=== PATIENT | female | born 1980 | race Two or more races ===

== ENCOUNTER 2023-09-10 21:35 | Emergency (ER) | payer OTHER ==
[~2023-09-10] VITALS: Ht 157.5 cm; Wt 99.8 kg
[2023-09-10] MEDS ORDERED: GLUMETZA1000 MG PO (21:58)
[2023-09-10] MEDS ORDERED: CRESTOR5 MG PO (21:59)
[2023-09-10] MEDS ORDERED: LOSARTAN POTASS25 MG PO (21:59)
[2023-09-10] MEDS ORDERED: AMLODIPINE-OLM1 EAC2 (21:59)
[2023-09-10] MEDS ORDERED: MOUNJARO7.5 MG/0.5 SQ (22:00)
[2023-09-10] MEDS ORDERED: GEMFIBROZIL600 MG PO (22:01)
[2023-09-10] MEDS ORDERED: CEFTRIAXONE SODIUM 1,000 MG VIAL IM STA (23:11)
[2023-09-10] MEDS ORDERED: HYDROCODONE/CHLORPHEN P-STIREX 5 ML ML PO STA (23:12)
[2023-09-10] MEDS ORDERED: DEXAMETHASONE SODIUM PHOSPHATE 4 MG/ML VIAL IM STA (23:12)
== END 2023-09-10 23:38 | disposition home or self-care (01) ==
LOC: ER 21:36
DX: J06.9 Acute upper respiratory infection, unspecified (principal)

== ENCOUNTER 2023-10-15 15:21 | Emergency (ER) | payer OTHER ==
[~2023-10-15] VITALS: Ht 157.5 cm; Wt 98.0 kg
[~2023-10-15 15:21] MED LIST: AMLODIPINE-OLM1 EAC2; CRESTOR5 MG PO; GEMFIBROZIL600 MG PO; GLUMETZA1000 MG PO; LOSARTAN POTASS25 MG PO; MOUNJARO7.5 MG/0.5 SQ
[2023-10-15] MEDS ORDERED: ACID REDUCER20 M1 (15:31)
[2023-10-15] MEDS ORDERED: ORPHENADRINE CITRATE 30 MG/ML AMPUL IM STA (16:13)
[2023-10-15] MEDS ORDERED: KETOROLAC TROMETHAMINE 60 MG VIAL IM STA (16:13)
[2023-10-15] MEDS ORDERED: ACETAMINOPHEN WITH CODEINE 1 UDTAB TABLET PO STA (16:14)
[2023-10-15] MEDS ORDERED: KETOROLAC TROMETHAMINE 60 MG VIAL IM ONE (16:18)
== END 2023-10-15 16:25 | disposition home or self-care (01) ==
LOC: ER 15:22
DX: M54.50 Low back pain, unspecified (principal)

== ENCOUNTER 2023-10-20 20:36 | Emergency (ER) | payer OTHER ==
[~2023-10-20] VITALS: Ht 157.5 cm; Wt 98.0 kg
[~2023-10-20 20:36] MED LIST changes: +ACID REDUCER20 M1
[2023-10-20] MEDS ORDERED: MORPHINE SULFATE 2 MG/ML CARTRIDGE IV ONE (22:45)
[2023-10-20] MEDS ORDERED: MEPERIDINE HCL/PF 25 MG/ML VIAL IM ONE (22:45)
[2023-10-20 22:58] LABS: HEMATOCRIT 37.4 % (36.0-45.00); HEMOGLOBIN 12.5 g/dL (12.0-15.00); MEAN CELL VOLUME 76.8 fL (80.00-100.00); MEAN CORPUSCULAR HEMOGLOBIN 25.7 pg (27.00-32.0); MEAN CORPUSCULAR HGB CONC 33.4 g/dl (32.0-36.0); PLATELET COUNT 345 K/uL (150-450); RED BLOOD COUNT 4.87 M/uL (4.00-6.00); RED CELL DISTRIBUTION WIDTH 14.2 % (11.5-14.5)
[2023-10-20 23:21] LABS: ALBUMIN 3.9 gm/dL (3.4-5.0); BILIRUBIN TOTAL 0.2 mg/dL (0.3-1.2); CALCIUM 9.7 mg/dL (8.5-10.1); CREATININE SERUM 1.07 mg/dL (0.55-1.02); GFR 56.51; GLOBULINA 3.8 G/DL (2.4-3.5); POTASSIUM 3.9 mEq/L (3.5-5.1); TOTAL PROTEIN 7.7 gm/dL (6.4-8.2)
[2023-10-20 23:49] LABS: PH,URINE 5.5 (5.0-8.0); URINE APPEARANCE Clear; URINE BILIRRUBIN Negative (NEGATIVE); URINE BLOOD Negative; URINE COLOR Yellow; URINE GLUCOSE Negative (NEGATIVE); URINE KETONE Trace (NEGATIVE); URINE LEUKOCYTE Negative; URINE NITRATE Negative; URINE PROTEIN Negative (NEGATIVE); URINE UROBILINOGEN 0.2 E.U./dl
[2023-10-20 23:52] LABS: URINE BACTERIA 2821.1 uL (0.0-1933); URINE EPITHELIAL CELLS 50.6 uL (0.0-38.8); URINE RBC 10.6 uL (0.0-20.8)
[2023-10-21 00:14] LABS: URINE CAST 0.61 uL (0.0-1.40)
[2023-10-21 00:16] LABS: URINE MUCUS MODERATE
== END 2023-10-21 02:04 | disposition home or self-care (01) ==
LOC: ER 20:37
PROVIDERS: General Practice
DX: M54.16 Radiculopathy, lumbar region (principal); R19.7 Diarrhea, unspecified; R10.11 Right upper quadrant pain; E11.9 Type 2 diabetes mellitus without complications; Z79.84 Long term (current) use of oral hypoglycemic drugs; I10 Essential (primary) hypertension

== ENCOUNTER 2024-08-02 10:08 | Emergency (ER) | payer OTHER ==
[~2024-08-02] VITALS: Ht 160 cm; Wt 100.7 kg
[2024-08-02 11:58] LABS: BASO % 0.5 % (0.1-1.2); EOS # 0.11 (0.04-0.54); HEMATOCRIT 36.6 % (34.1-44.9); HEMOGLOBIN 12.1 g/dL (11.2-15.7); LYMPH # 3.33 (1.18-3.74); LYMPH % 30.4 % (19.3-53.1); MEAN CORPUSCULAR HEMOGLOBIN 25.9 pg (25.6-32.2); MONO # 0.49 (0.24-0.82); MONO % 4.5 % (4.7-12.5); NEUT # 6.95 (1.56-6.13); NEUT % 63.3 % (34.0-71.1); PLATELET COUNT 287 K/uL (163-369); RED BLOOD COUNT 4.67 M/uL (3.93-5.22); RED CELL DISTRIBUTION WIDTH 13.6 % (11.6-14.4)
[2024-08-02 12:16] LABS: PH,URINE 5.5 (5.0-8.0); URINE APPEARANCE Clear; URINE BILIRRUBIN Negative (NEGATIVE); URINE BLOOD Negative; URINE COLOR Yellow; URINE GLUCOSE Negative (NEGATIVE); URINE KETONE Negative (NEGATIVE); URINE LEUKOCYTE Negative; URINE NITRATE Negative; URINE PROTEIN Negative (NEGATIVE); URINE UROBILINOGEN 0.2 E.U./dl
[2024-08-02 12:25] LABS: URINE BACTERIA 316.9 uL (0.0-1933); URINE EPITHELIAL CELLS 9.7 uL (0.0-38.8); URINE RBC 9.7 uL (0.0-20.8); URINE WBC 6.6 uL (0.0-23.2)
[2024-08-02 12:36] LABS: CALCIUM 9.1 mg/dL (8.5-10.1); CREATININE SERUM 0.78 mg/dL (0.55-1.02); GFR 80.99; POTASSIUM 3.7 mEq/L (3.5-5.1)
== END 2024-08-02 14:35 | disposition home or self-care (01) ==
LOC: ER 10:08
PROVIDERS: Emergency Medicine
DX: R42 Dizziness and giddiness (principal); E78.00 Pure hypercholesterolemia, unspecified; I10 Essential (primary) hypertension; E11.9 Type 2 diabetes mellitus without complications; Z79.84 Long term (current) use of oral hypoglycemic drugs